=== PATIENT | female | born 1945 | race Caucasian/White ===

== ENCOUNTER 2023-12-28 14:13 | Outpatient (OUT) | payer MEDICARE, SELFPAY ==
--- NOTE | 2023-12-28 14:16 | MM_ITS ---
Patient Name: EDGAR BYERS MR#: [id number] : 1945 Exam Date: 12/28/2023 Ordering Doctor: Shaikh Meagan Contreras . RADIOLOGY REPORT PROCEDURE: MM TOMOSYNTHESIS SCREENING BI COMPARISON: MG MAMM SCREEN JENNIFER W CAD, 07/31/2018. MG MAMM SCREEN JENNIFER W CAD, 10/29/2015. INDICATIONS: screening Calculator Name NCI Breast Cancer Risk Assessment Tool 5 Year Breast Cancer Risk 1.10% Lifetime Breast Cancer Risk 2.00% Personal Breast Cancer No Personal Ovarian Cancer No Treatments None Family Cancers None LOCATION: [facility] BREAST COMPOSITION: Scattered areas fibroglandular density. FINDINGS: DIAGNOSTIC CATEGORY 2--BENIGN FINDING. NO CHANGE FROM COMPARISON. Scattered benign-appearing calcifications are present. Scattered benign-appearing lymph nodes are present. RIGHT BREAST: No significant suspicious finding. LEFT BREAST: No significant suspicious finding. RECOMMENDATIONS: ROUTINE MAMMOGRAM AND CLINICAL EVALUATION IN 12 MONTHS. PLEASE NOTE: A NORMAL MAMMOGRAM DOES NOT EXCLUDE THE POSSIBILITY OF BREAST CANCER. A CLINICALLY SUSPICIOUS PALPABLE LUMP SHOULD BE BIOPSIED. Dictated by: Abel Coleman MD on 12/28/2023 at 15:38 Approved by: Abel Coleman MD on 12/28/2023 at 15:40
== END 2023-12-28 14:14 | disposition home or self-care (01) ==
LOC: MAMMO 14:13
PROVIDERS: PCP Internal Medicine; Visit Provider Internal Medicine
DX: Z12.31 Encounter for screening mammogram for malignant neoplasm of breast (principal)
CPT/HCPCS: 77063; 77067